=== PATIENT | male | born 1945 | race African-American/Black ===

== ENCOUNTER 2017-06-28 19:24 | Emergency (ER) | payer OTHER ==
--- NOTE | 2017-06-28 20:05 | PDOC ---
Rapid Medical Evaluation Medical Evaluation: Allergies Allergy/AdvReac Type Severity Reaction Status Date / Time No Known Allergies Allergy Verified 06/03/14 18:44 06/28/17 20:01 I have performed a brief in-person evaluation of this patient. The patient presents with a chief complaint of: fever x 4 days, productive cough , body aches, no vomiting/diarrhea, has taken "some pills" for it but he doesn' t know what, last taken this morning hx of HTN, doesn't know what med he takes for it Pertinent physical exam findings: temp 103, lungs ctab I have ordered the following: flu swab, tylenol The patient will proceed to the ED for further evaluation.
[2017-06-28] MEDS ORDERED: ACETAMINOPHEN 325 MG TABLET (FP) PO ONE (20:06)
[2017-06-28 20:08] VITALS: BP 149/92; PULSE 98; BMI 26.3
[2017-06-28 20:46] VITALS: TEMP 100.6
--- NOTE | 2017-06-28 21:06 | PDOC ---
History of Present Illness - General History Source: Patient <EnNikos - Last Filed: 06/28/17 21:14> - General History Source: Patient, Family Exam Limitations: Language Barrier (son as emergency veterinarian) - History of Present Illness Initial Comments: 06/28/17 21:16 The patient is a 72 year old male, with a significant past medical history of hypertension, hyperlipidemia, who presents to the emergency department with son (acting as emergency veterinarian for [employer]) for evaluation of subjective fevers, diffuse muscle aches, dry cough, diffuse abdominal pain, and rhinorrhea. He reports his abdominal pain is 9/10 and diffuse. He denies exacerbating and alleviating factors of his pain. He reports his bowel movements have been normal without blood. He reportedly took 2 pills of something but can not recall the name. He denies alleviation of symptoms after taking the 2 pills. The patient denies chest pain, shortness of breath, headache and dizziness. The patient denies fever, chills, nausea, vomit, diarrhea and constipation. The patient denies dysuria, frequency, urgency and hematuria. Allergies: NKDA <Radha Wiseman - Last Filed: 06/28/17 21:18> - General Chief Complaint: Respiratory Stated Complaint: COLD SYMPTOMS Time Seen by Provider: 06/28/17 20:43 Past History - Past Medical History Asthma: Yes HTN: Yes - Suicide/Smoking/Psychosocial Hx Smoking Status: No Smoking History: Smoker current status UNK Have you smoked in the past 12 months: No Number of Cigarettes Smoked Daily: 0 Hx Alcohol Use: No Drug/Substance Use Hx: No Substance Use Type: None Hx Substance Use Treatment: No <Nikos Gatica - Last Filed: 06/28/17 21:14> <Radha Wiseman - Last Filed: 06/28/17 21:18> - Past Medical History Allergies/Adverse Reactions: Allergies Allergy/AdvReac Type Severity Reaction Status Date / Time No Known Allergies Allergy Verified 06/28/17 20:06 Home Medications: Ambulatory Orders Amlodipine Bes/Olmesartan Med [Nataly 10-40 mg Tablet] 1 tab PO DAILY 06/04/14 Nebivolol HCl [Bystolic] 10 mg PO DAILY 06/04/14 Ibuprofen 800 mg PO TID #30 tablet 06/28/17 Ondansetron [Zofran *Odt*] 4 mg SL TID #30 od.tablet 06/28/17 Review of Systems - Review of Systems Able to Perform ROS?: Yes Comments:: 06/28/17 21:16 CONSTITUTIONAL: (+) subjective fever, Absent: chills, diaphoresis, generalized weakness, malaise , loss of appetite HEENT: (+) rhinorrhea, Absent: nasal congestion, throat pain, throat swelling, difficulty swallowing, mouth swelling, ear pain, eye pain, visual Changes CARDIOVASCULAR: Absent: chest pain, syncope, palpitations, irregular heart rate, lightheadedness , peripheral edema RESPIRATORY: (+) cough, Absent: shortness of breath, dyspnea with exertion, orthopnea, wheezing, stridor, hemoptysis GASTROINTESTINAL: (+) diffuse abdominal pain, Absent: abdominal distension, nausea, vomiting, diarrhea, constipation, melena, hematochezia GENITOURINARY: Absent: dysuria, frequency, urgency, hesitancy, hematuria, flank pain, genital pain MUSCULOSKELETAL: (+) diffuse muscle aches. Absent: arthralgia, joint swelling SKIN: Absent: rash, itching, pallor HEMATOLOGIC/IMMUNOLOGIC: Absent: easy bleeding, easy bruising, lymphadenopathy, frequent infections ENDOCRINE: Absent: unexplained weight gain, unexplained weight loss, heat intolerance, cold intolerance NEUROLOGIC: Absent: headache, focal weakness or paresthesias, dizziness, unsteady gait, seizure, mental status changes, bladder or bowel incontinence PSYCHIATRIC: Absent: anxiety, depression, suicidal or homicidal ideation, hallucinations. <Radha Wiseman - Last Filed: 06/28/17 21:18> *Physical Exam - Vital Signs Last Vital Signs Temp Pulse Resp BP Pulse Ox 100.6 F H 98 H 16 149/92 99 06/28/17 20:45 06/28/17 20:06 06/28/17 20:06 06/28/17 20:06 06/28/17 20:06 <Nikos Gatica - Last Filed: 06/28/17 21:14> - Vital Signs Last Vital Signs Temp Pulse Resp BP Pulse Ox 100.6 F H 98 H 16 149/92 99 06/28/17 20:45 06/28/17 20:06 06/28/17 20:06 06/28/17 20:06 02/08/18 20:06 - Physical Exam Comments: 06/28/17 21:17 GENERAL: Well developed, well nourished. Awake and alert. No acute distress. HEENT: Normocephalic, atraumatic. PERRLA, EOMI. No conjunctival pallor. Sclera are non- icteric. Moist mucous membranes. Oropharynx is clear. NECK: Supple. Full ROM. No JVD. Carotid pulses 2+ and symmetric, without bruits. No thyromegaly. No lymphadenopathy. CARDIOVASCULAR: Regular rate and rhythm. No murmurs, rubs, or gallops. Distal pulses are 2+ and symmetric. PULMONARY: No evidence of respiratory distress. Lungs clear to auscultation bilaterally. No wheezing, rales or rhonchi. ABDOMINAL: Soft. Non-tender. Non-distended. No rebound or guarding. No organomegaly. Normoactive bowel sounds. MUSCULOSKELETAL Normal range of motion at all joints. No bony deformities or tenderness. No CVA tenderness. EXTREMITIES: No cyanosis. No clubbing. No edema. No calf tenderness. SKIN: Warm and dry. Normal capillary refill. No rashes. No jaundice. NEUROLOGICAL: Alert, awake, appropriate. Cranial nerves 2-12 intact. Normoreflexic in the upper and lower extremities. Normal speech. Toes are down-going bilaterally. Gait is normal without ataxia. PSYCHIATRIC: Cooperative. Good eye contact. Appropriate mood and affect. <Radha Wiseman - Last Filed: 06/28/17 21:18> ED Treatment Course - ADDITIONAL ORDERS Additional order review: 06/28/17 20:12 Influenza Types A,B Antigen (TIEN) - Preliminary Nasopharyngeal Swab - Preliminary - Medications Given in the ED: ED Medications Discontinued Medications Generic Name Dose Route Start Last Admin Trade Name Freq PRN Reason Stop Dose Admin Acetaminophen 650 mg 06/28/17 20:06 06/28/17 20:10 Tylenol - PO 06/28/17 20:07 650 mg ONCE ONE Administration <Nikos Gatica - Last Filed: 06/28/17 21:14> - ADDITIONAL ORDERS Additional order review: 06/28/17 20:12 Influenza Types A,B Antigen (TIEN) - Final Nasopharyngeal Swab - Final - Medications Given in the ED: ED Medications Discontinued Medications Generic Name Dose Route Start Last Admin Trade Name Freq PRN Reason Stop Dose Admin Acetaminophen 650 mg 06/28/17 20:06 06/28/17 20:10 Tylenol - PO 06/28/17 20:07 650 mg ONCE ONE Administration <Radha Wiseman - Last Filed: 06/28/17 21:18> Medical Decision Making - Medical Decision Making 06/28/17 21:14 Dr. Gatica: The scribe's documentation has been prepared under my direction and personally reviewed by me in its entirery. I confirm that the note above accurately reflects all work, treatment, procedures, and medical decision making performed by me. <Nikos Gatica - Last Filed: 06/28/17 21:14> *DC/Admit/Observation/Transfer - Discharge Dispostion Admit: No <Nikos Gatica - Last Filed: 06/28/17 21:14> - Attestations Scribe Attestion: 06/28/17 21:17 Documentation prepared by Radha Wiseman, acting as medical historian for Nikos Gatica DO. <Radha Wiseman - Last Filed: 06/28/17 21:18> Diagnosis at time of Disposition: Fever - Discharge Dispostion Disposition: HOME Condition at time of disposition: Stable - Prescriptions Prescriptions: Ibuprofen 800 mg PO TID #30 tablet Ondansetron [Zofran *Odt*] 4 mg SL TID #30 od.tablet - Patient Instructions Printed Discharge Instructions: DI for Fever (Symptom) -- Adult
[2017-06-28] MEDS ORDERED: IBUPROFEN 400 MG TABLET (FP) PO ONE ×2 (21:12→21:20)
== END 2017-06-28 21:26 | disposition home or self-care (01) ==
LOC: JER 19:24
DX: I10 Essential (primary) hypertension (principal); E78.5 Hyperlipidemia, unspecified; J45.909 Unspecified asthma, uncomplicated
CPT/HCPCS: 71046-TC-FY; 87804; 99281-25

== ENCOUNTER 2018-10-03 06:50 | Day surgery (SDC) | payer OTHER ==
[2018-10-03 07:42] VITALS: BMI 26.4
[2018-10-03 08:41] VITALS: TEMP 97
[2018-10-03 13:29] VITALS: BP 169/82; PULSE 70
== END 2018-10-03 09:37 | disposition home or self-care (01) ==
LOC: JASU-ENDO 06:50
PROVIDERS: ATTEND Internal Medicine Gastroenterology
PROC: 0DBL8ZX Excision of Transverse Colon, Via Natural or Artificial Opening Endoscopic, Diagnostic (ICD-10-PCS; principal; 2018-10-03 08:00)
DX: Z12.11 Encounter for screening for malignant neoplasm of colon (principal); K63.5 Polyp of colon; K64.8 Other hemorrhoids